=== PATIENT | male | born 1985 | race Caucasian/White ===

== ENCOUNTER → 2020-01-24 | Outpatient (CLI) | payer OTHER | LOC: CAT 16:29 | PROVIDERS: ATTEND Internal Medicine Cardiovascular Disease | DX: Z13.6 Encounter for screening for cardiovascular disorders (principal); I25.10 Atherosclerotic heart disease of native coronary artery without angina pectoris; E78.00 Pure hypercholesterolemia, unspecified ==

== ENCOUNTER → 2020-01-24 | Outpatient (CLI) | payer BC, OTHER | LOC: SJCVCIMAG 06:53 | PROVIDERS: ATTEND Internal Medicine Cardiovascular Disease | DX: R94.39 Abnormal result of other cardiovascular function study (principal); I10 Essential (primary) hypertension; E78.5 Hyperlipidemia, unspecified ==